=== PATIENT | female | born 1975 | race Caucasian/White ===

== ENCOUNTER 2017-07-26 16:53 | Inpatient (IN) | payer OTHER ==
[~2017-07-26] VITALS: Ht 175.3 cm; Wt 94.3 kg
[~2017-07-26 16:53] MED LIST: BACTRIM,SEPT1 TABLET PO; HUMALOG100 UNITS/ SQ; LANTUS100 UNIT/1 SQ; PERCOCET 5-3251 EACH PO; Tylenol Extra Streng PO; oxyCODONE PO
[2017-07-26 19:40] LABS: CHLORIDE 109 mEq/L (99-109); POTASSIUM 3.7 mEq/L (3.7-5.4); SODIUM 140 mEq/L (136-147)
[2017-07-26 19:42] LABS: GLUCOSE 104 mg/dL (70-99)
[2017-07-26 19:44] LABS: ANION GAP 11 MEQ/L (2-14); TOTAL BILIRUBIN 0.3 mg/dL (0.0-1.0)
[2017-07-26] MEDS ORDERED: FERROUS SULFAT325 MG PO (19:44)
[2017-07-26 19:46] LABS: ALKALINE PHOSPHATASE 90 IU/L (3-129); GFR ESTIMATE (CALCULATED) > 59 mL/min/
[2017-07-26 19:47] LABS: UREA NITROGEN (BUN) 10 mg/dL (9-23)
[2017-07-26 19:50] LABS: HEMATOCRIT 32.2 % (36.0-46.0); MCH 21.2 PG (29.0-34.0); MCHC 29.2 G/DL (30.0-36.0); MCV 72.5 FL (83-99); PLATELET COUNT 329 K/uL (156-360); RBC DIS.WIDTH-CV 17.1 % (11.8-14.6); RBC DIS.WIDTH-SD 44.7 % (39-53); RED BLOOD COUNT 4.44 M/uL (3.80-5.20); WHITE BLOOD COUNT 7.2 K/uL (4.1-10.2)
[2017-07-26 19:55] LABS: QUANTITATIVE HCG < 4.0 MIU/ML
[2017-07-26 20:02] LABS: ADD MIUA? YES; BILIRUBIN NEGATIVE; BLOOD NEGATIVE; COLOR YELLOW ((YELLOW)); GLUCOSE (STRIP) NEGATIVE; KETONES 5; LEUKOCYTES NEGATIVE; NITRITE NEGATIVE; PROTEIN (STRIP) 30; SPECIFIC GRAVITY 1.034 (1.000-1.030)
[2017-07-26 20:07] LABS: BACTERIA NONE SEEN /HPF; EPITHELIAL CELLS 1+ /HPF; MUCUS 2+ /LPF; RED BLOOD CELLS 0-5 /HPF (0-5); WHITE BLOOD CELLS 0-5 /HPF (0-5)
[2017-07-26] MEDS ORDERED: ALPRAZOLAM ER0.5 MG PO (21:43)
[2017-07-26] MEDS ORDERED: TYLENOL EXTRA500 MG PO (21:44)
[2017-07-27 00:37] VITALS: BP 169/71
[2017-07-27 03:48] VITALS: BP 127/77
[2017-07-27 07:14] LABS: ADD MIUA? YES; BILIRUBIN NEGATIVE; BLOOD NEGATIVE; COLOR YELLOW ((YELLOW)); GLUCOSE (STRIP) NEGATIVE; KETONES NEGATIVE; LEUKOCYTES NEGATIVE; NITRITE NEGATIVE; PROTEIN (STRIP) NEGATIVE; SPECIFIC GRAVITY 1.021 (1.000-1.030)
[2017-07-27 07:20] LABS: BACTERIA RARE /HPF; EPITHELIAL CELLS 1+ /HPF; MUCUS 2+ /LPF; RED BLOOD CELLS 0-5 /HPF (0-5); UCUL ADDED? NO; WHITE BLOOD CELLS 0-5 /HPF (0-5)
[2017-07-27 07:50] VITALS: BP 132/74
[2017-07-27 12:00] VITALS: BP 131/83
[2017-07-27 17:29] VITALS: BP 163/88
[2017-07-27 23:24] VITALS: BP 124/60
[2017-07-28 06:19] LABS: HEMATOCRIT 31.2 % (36.0-46.0); MCH 20.9 PG (29.0-34.0); MCHC 28.5 G/DL (30.0-36.0); MCV 73.2 FL (83-99); MEAN PLAT.VOLUME 10.9 uM^3 (9.5-12.4); PLATELET COUNT 265 K/uL (156-360); RBC DIS.WIDTH-CV 17.1 % (11.8-14.6); RED BLOOD COUNT 4.26 M/uL (3.80-5.20); WHITE BLOOD COUNT 5.8 K/uL (4.1-10.2)
[2017-07-28 07:01] LABS: ANION GAP 7 MEQ/L (2-14); CHLORIDE 107 MEQ/L (99-109); GFR ESTIMATE (CALCULATED) > 59 mL/min/; GLUCOSE 116 mg/dL (70-99); POTASSIUM 4.2 MEQ/L (3.7-5.4); SAMPLE HEMOLYSIS CHECK 0; SAMPLE ICTERIC CHECK 0; SAMPLE LIPEMIA CHECK 0; SODIUM 140 MEQ/L (136-147); UREA NITROGEN (BUN) 12 mg/dL (9-23)
[2017-07-28 07:38] VITALS: BP 101/57
[2017-07-28 15:26] VITALS: BP 133/67
[2017-07-28 23:59] VITALS: BP 170/87
[2017-07-29 08:04] VITALS: BP 124/59
[2017-07-29 11:13] LABS: IMM.RETIC FRACTION 23.9 % (3-19); RETIC HGB EQUIVALENT 24.4 (28-36); RETICULOCYTE COUNT 1.9 % (0.5-1.8)
[2017-07-29 11:24] LABS: FERRITIN 3 NG/ML (10-291)
[2017-07-29 14:55] LABS: ABSOLUTE RETICULOCYTE CT. 0.1 M/uL (0.02-0.08); IMM.RETIC FRACTION 17.5 % (3-19); RETIC HGB EQUIVALENT 23.3 (28-36); RETICULOCYTE COUNT 1.8 % (0.5-1.8)
[2017-07-29 15:39] LABS: FERRITIN 4 NG/ML (10-291)
[2017-07-29 16:26] LABS: IRON 14 MCG/DL (35-150)
[2017-07-29 16:34] VITALS: BP 127/60
[2017-07-29 17:01] LABS: APPEARANCE CLEAR/COLORLESS
[2017-07-29 17:04] LABS: RED CELL AREA COUNTED 18; RED CELL COUNT 0 /MM^3 (0-1); RED CELL DILUTION 1; WBC AREA COUNTED 18; WBC DILUTION 1; WHITE CELL COUNT 1 /MM^3 (0-5); WHITE CELL RAW COUNT 2
[2017-07-29 17:37] LABS: CSF EOSINOPHILS 0 % (0-25); MONONUCLEAR WBC'S 100 % (50-90); POLYNUCLEAR WBC'S 0 % (0-3)
[2017-07-30 00:38] VITALS: BP 126/60
[2017-07-30 07:40] VITALS: BP 122/57
[2017-07-30 10:54] LABS: LYME DISEASE SEROLOGY SCREEN NEGATIVE (NEGATIVE)
[2017-07-30 14:49] LABS: EOSINOPHIL (%) 0 % (0-5); HEMATOCRIT 33.4 % (36.0-46.0); IMMATURE GRANULOCYTE (%) 0.5 % (0.0-0.7); IMMATURE GRANULOCYTE COUNT 0.1 K/uL; INSTRUMENT ABS NEUTROPHIL CT 11.8 K/uL; LYMPHOCYTE COUNT 0.7 K/uL (1.0-2.8); MCH 21.6 PG (29.0-34.0); MCHC 29.6 G/DL (30.0-36.0); MCV 72.9 FL (83-99); MONOCYTE (%) 5.2 % (3-12); MONOCYTE COUNT 0.7 K/uL (0-0.8); NEUTROPHIL (%) 88.8 % (45-76); NEUTROPHIL COUNT 11.8 K/uL (1.8-6.4); PLATELET COUNT 346 K/uL (156-360); RBC DIS.WIDTH-CV 17.2 % (11.8-14.6); RBC DIS.WIDTH-SD 44.9 % (39-53); RED BLOOD COUNT 4.58 M/uL (3.80-5.20); WHITE BLOOD COUNT 13.3 K/uL (4.1-10.2)
[2017-07-30 16:10] VITALS: BP 146/79
[2017-07-30 23:41] VITALS: BP 137/63
[2017-07-31 07:25] LABS: EOSINOPHIL (%) 0 % (0-5); HEMATOCRIT 30.7 % (36.0-46.0); IMMATURE GRANULOCYTE (%) 0.5 % (0.0-0.7); IMMATURE GRANULOCYTE COUNT 0.1 K/uL; INSTRUMENT ABS NEUTROPHIL CT 8.6 K/uL; MCH 21.6 PG (29.0-34.0); MCV 72.2 FL (83-99); MEAN PLAT.VOLUME 11.2 uM^3 (9.5-12.4); MONOCYTE (%) 4.1 % (3-12); MONOCYTE COUNT 0.4 K/uL (0-0.8); NEUTROPHIL (%) 85.4 % (45-76); NEUTROPHIL COUNT 8.6 K/uL (1.8-6.4); PLATELET COUNT 268 K/uL (156-360); RBC DIS.WIDTH-SD 43.8 % (39-53); RED BLOOD COUNT 4.25 M/uL (3.80-5.20)
[2017-07-31 07:32] LABS: ANION GAP 9 MEQ/L (2-14); CHLORIDE 101 MEQ/L (99-109); GFR ESTIMATE (CALCULATED) > 59 mL/min/; GLUCOSE 254 mg/dL (70-99); POTASSIUM 4.5 MEQ/L (3.7-5.4); SAMPLE HEMOLYSIS CHECK 0; SAMPLE ICTERIC CHECK 0; SAMPLE LIPEMIA CHECK 0; SODIUM 135 MEQ/L (136-147); UREA NITROGEN (BUN) 15 mg/dL (9-23)
[2017-07-31 08:35] VITALS: BP 150/67
[2017-08-02 19:23] LABS: Albumin, Serum 3.9 g/dL (3.5-4.9); IgG Index, CSF 0.51 index (<0.66); Synthesis Rate IgG, CSF -3.1 mg/24 h (-9.9-3.3)
== END 2017-07-31 10:00 | disposition short-term general hospital (02) | DRG 71 ==
LOC: EME 16:53 → EDOF 22:55 → 3EAST 22:55 → ENRESERV 23:07 → 3EAST 07-27 00:27
PROVIDERS: Hospitalist; Nurse Practitioner Family; Physician Assistant Medical; Specialist; Student in an Organized Health Care Education/Training Program
PROC: 009U3ZX Drainage of Spinal Canal, Percutaneous Approach, Diagnostic (ICD-10-PCS; principal; 2017-07-29)
DX: G93.9 Disorder of brain, unspecified (principal); R47.01 Aphasia; K92.2 Gastrointestinal hemorrhage, unspecified; D50.9 Iron deficiency anemia, unspecified; E11.9 Type 2 diabetes mellitus without complications; G97.1 Other reaction to spinal and lumbar puncture; Y84.4 Aspiration of fluid as the cause of abnormal reaction of the patient, or of later complication, without mention of misadventure at the time of the procedure; K59.00 Constipation, unspecified; F32.9 Major depressive disorder, single episode, unspecified; Z98.84 Bariatric surgery status
CPT/HCPCS: 62270; 70553; 71250; 74176; 77003; 80048; 80053; 81003; 82728; 82945; 83540; 83873 90; 83916 90; 84157; 84466; 84702; 85025; 85027; 85045; 85651; 86038; 86430; 86617 90; 86618; 86618 90; 88108; 88160; 89051; 95819; 99281; 99285; G0378; J1100; J1170; J1644; J2270; J2405; J3010